=== PATIENT | male | born 1960 | race Caucasian/White ===

== ENCOUNTER 2017-08-28 08:10 | Day surgery (SDC) | payer BC ==
--- NOTE | 2017-08-17 07:26 | HP ---
PREOPERATIVE HISTORY AND PHYSICAL: DATE OF ADMISSION: 08/28/17 [facility] CHIEF COMPLAINT: Left thumb pain and numbness and tingling in the left hand. 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 He has had conservative treatment with bracing, topical anti-inflammatory medication but has failed to improve. He also has numbness and tingling in his hand. He had a nerve conduction study which shows ulnar nerve compression at the left elbow and left carpal tunnel syndrome. He presents for decompression of the median nerve on the wrist, the ulnar nerve at the elbow and thumb, carpometacarpal arthroplasty. PAST MEDICAL HISTORY: Cervical radiculopathy and lumbar spondylosis, anxiety, and reflux. PAST SURGICAL HISTORY: Eye surgery, fracture repair. MEDICATIONS: The patient's medications are: 1. Nexium 40 mg daily. 2. Xanax 2 mg p.o. daily. 3. Viibryd 10 mg p.o. daily. 4. Hydroxyzine hydrochloride 25 mg daily. 5. Naproxen 500 mg p.o. p.r.n. 6. Cyclobenzaprine 10 mg p.o. p.r.n. ALLERGIES: He has no known drug allergies. FAMILY HISTORY: Negative for heart disease. SOCIAL HISTORY: He lives with his spouse. 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 Quit smoking in 2000. Occasionally consumes alcohol. PHYSICAL EXAMINATION VITAL SIGNS: Height is 71 inches, weight 180 pounds, blood pressure 117/72, temperature 96.8, pulse 64. HEENT: Exam is unremarkable. He has good range of motion of his neck with minimal pain. Eye movements are concentric. LUNGS: Clear to auscultation. Good inspiratory effort. No wheezing. CARDIAC: Regular rate and rhythm without murmur. PERIPHERAL VASCULAR: He has palpable pulses and no peripheral edema. EXTREMITIES: He has marked tenderness and positive grind test at the CMC joint of his left thumb. He has a positive Tinel's sign at the median nerve of the wrist and the ulnar nerve at the elbow. NEUROLOGIC: He is alert and oriented without focal deficits. IMPRESSION: 1. Left elbow ulnar neuropathy. 2. Left carpal tunnel syndrome. 3. Left thumb carpometacarpal arthritis. PLAN: For left thumb carpometacarpal arthroplasty, left carpal tunnel release, and left ulnar nerve decompression at the elbow. The surgical procedure, risks , and benefits were explained to the patient today. We will see him back in followup approximately 10 days postop. [id number]/[facility] #: [id number] RADHAMES
[~2017-08-28 08:10] MED LIST: Buffered Lidocaine 0.9% SYRIN* 5 ML/SYR SYRINGE INTRADERM ONE
[2017-08-28] MEDS ORDERED: ceFAZolin 2 GM PREMIX (*) 2 GM/50 ML BAG IVPB ONE (09:38)
[2017-08-28] MEDS ORDERED: Ketorolac INJ* 30 MG/ML 1 ML VIAL IV PRN (10:27)
[2017-08-28] MEDS ORDERED: fentaNYL* 50 MCG/ML 2 ML VIAL (100 MCG VIAL) IV PRN (10:27)
[2017-08-28] MEDS ORDERED: Ondansetron INJ* 2 MG/ML VIAL IV PRN (10:27)
[2017-08-28] MEDS ORDERED: fentaNYL* 50 MCG/ML 2 ML VIAL (100 MCG VIAL) ONE (10:50)
[2017-08-28] MEDS ORDERED: Bupivacaine 0.5% SDV PF* 30 ML VIAL ONE (11:05)
[2017-08-28] MEDS ORDERED: HYDROcodone/ACETAMIN 5-325 MG* 1 TAB ONE (12:45)
[2017-08-28] MEDS ORDERED: Ketorolac INJ* 30 MG/ML 1 ML VIAL ONE (12:48)
[2017-08-28 12:56] VITALS: BP 145/88
--- NOTE | 2017-08-29 04:28 | OP ---
DATE OF OPERATION: 08/28/17 - [facility] DATE OF : 58 SURGEON: Jazmin Talley MD [employer] COMPUTER CONSULTANT: THELMA Carter ANESTHESIOLOGIST: Prabhu Teague DO ANESTHESIA: General. PRE-OP DIAGNOSES: Ulnar neuropathy at the left elbow, carpal tunnel syndrome, and thumb CMC arthritis all on the left. POST-OP DIAGNOSIS: Ulnar neuropathy at the left elbow, carpal tunnel syndrome, and thumb CMC arthritis all on the left. OPERATIVE PROCEDURE: Left ulnar nerve decompression, left carpal tunnel release , left thumb carpometacarpal arthroplasty. ESTIMATED BLOOD LOSS: Zero. TOURNIQUET TIME: About an hour. INDICATIONS: Suen is a 57-year-old man who has numbness in his left hand with the nerve conduction study consistent with ulnar nerve compression at the left elbow and carpal tunnel syndrome. He also has severe degenerative arthritis of his left thumb CMC joint and presents for left ulnar nerve decompression at the elbow, left carpal tunnel release, and the left thumb CMC arthroplasty. DESCRIPTION OF PROCEDURE: The patient was brought to the operating room, placed in supine position on the operating table with the tourniquet around his left upper arm. The skin of his left upper extremity was prepped and draped in the usual sterile fashion. The upper extremity was exsanguinated and the tourniquet elevated to 250 mmHg. A curvilinear incision was made between the medial epicondyle and the tip of the olecranon process, dissected bluntly through the subcutaneous tissue down to the ulnar nerve, which is located proximal to the elbow joint. It was carefully released proximally and the branch of the medial antebrachial cutaneous nerve was preserved. The nerve was then released through the cubital tunnel and into the FCU fascia. The deep and superficial parts of the FCU fascia were both divided. The majority of the compression was at the cubital tunnel. The medial intermuscular septum was divided and after hemostasis was achieved, the subcutaneous tissue was closed and the skin edges reapproximated with j[place]ica. Next, a longitudinal incision was made in the palm in line with the ring finger. We dissected through the subcutaneous tissue down to the transverse carpal ligament. The ligament was divided sharply with a knife and then more proximally with the scissors. The nerve was dissected from the surrounding tissue and there was an area of significant compression at the mid portion of the ligament. The wound was irrigated and skin edges reapproximated with 4-0 nylon suture. Next, an S-shaped incision was made centered at the CMC joint of the left thumb. We carefully dissected through the subcutaneous tissue and branches of the radial sensory nerve were located and retracted by the hearing and speech assistant, Tiffanie Wilson, whose assistance was essential for the completion of the case. The APL and EPB tendons were retracted and then the radial artery was located and again retracted by the hearing and speech assistant, Tiffanie Wilson. A distally based U-shaped flap was created at the thumb CMC joint capsule and this was subperiosteally dissected off the trapezium. There were marked degenerative changes at the base of the metacarpal and on the trapezium. The trapezium was removed in its entirety with a combination of osteotome and rongeur. The wound was irrigated with saline and then the CMC joint capsule was secured to the FCR tendon in the base of the wound. This gave very good position with abduction of the metacarpal and good position of the MP joint. The remainder of the capsule was closed with 4-0 nylon suture and then the skin edges were reapproximated with 4-0 nylon suture. The wounds were all dressed with Xeroform, 4x4, Webril, and an ulnar gutter splint and a thumb spica splint with an Randy wrap. The patient tolerated the procedure well and was brought to the recovery room in good condition. [id number]/[facility] #: [id number] MTDD
== END 2017-08-28 13:01 | disposition home or self-care (01) ==
LOC: OREAST 08:10
PROVIDERS: ATTEND Orthopaedic Surgery
DX: G56.22 Lesion of ulnar nerve, left upper limb (principal); G56.02 Carpal tunnel syndrome, left upper limb; M18.12 Unilateral primary osteoarthritis of first carpometacarpal joint, left hand; G47.33 Obstructive sleep apnea (adult) (pediatric); K21.9 Gastro-esophageal reflux disease without esophagitis; F41.9 Anxiety disorder, unspecified; Z87.891 Personal history of nicotine dependence
CPT/HCPCS: 88304; 88311; J0690; J1885; J3010